=== PATIENT | male | born 1995 | race Asian ===

== ENCOUNTER 2018-05-18 21:48 | Emergency (ER) | payer OTHER ==
[~2018-05-18] VITALS: Ht 167.6 cm; Wt 63.6 kg
[2018-05-18 21:50] VITALS: BP 99/59
== END 2018-05-18 22:29 | disposition left against medical advice (07) ==
LOC: EMS 21:49
DX: F10.129 Alcohol abuse with intoxication, unspecified (principal); Y90.9 Presence of alcohol in blood, level not specified; Z53.21 Procedure and treatment not carried out due to patient leaving prior to being seen by health care provider